=== PATIENT | male | born 1980 | race African-American/Black ===

== ENCOUNTER 2017-07-30 10:35 | Observation (INO) | payer SELFPAY ==
[2017-07-30] VITALS (8 sets, daily range): BP systolic 137–173; BP diastolic 77–100; PULSE 97–118; RESP 16–20; TEMP 97.7–98.7; O2SAT 97–98
[~2017-07-30] VITALS: Ht 190.5 cm; Wt 150.0 kg
[~2017-07-30 10:35] MED LIST: BACT800T5 PO; CLON0.2T PO; METHO500 PO; PERC10TA27 PO; ROBA500T PO
[2017-07-30] MEDS ORDERED: NITROGLYCERIN 0.4 MG SL 25 TABS/BTL SL ONE (11:00)
[2017-07-30] MEDS: SODIUM CHLORIDE 0.9% FLUSH 10 ML FLUSH IVF PRN ×2 (11:02→13:08)
[2017-07-30 11:18] LABS: AUTOMATED NEUTROPHIL # 10.3 TH/MM3 (1.8-7.7); BASOPHIL # 0.1 TH/MM3 (0-0.2); BASOPHIL % 0.8 % (0.0-2.0); EOSINOPHIL # 0.2 TH/MM3 (0-0.4); EOSINOPHIL % 1.2 % (0.0-4.0); HEMATOCRIT 44.2 % (39.0-51.0); HEMO FLAGS DIFF FINAL; LYMPH % 21.6 % (9.0-44.0); LYMPHOCYTE # 3.1 TH/MM3 (1.0-4.8); MEAN CELL VOLUME 88.1 FL (80.0-100.0); MEAN CORPUSCULAR HEMOGLOBIN 29.7 PG (27.0-34.0); MEAN CORPUSCULAR HGB CONC 33.7 % (32.0-36.0); MONO % 4.8 % (0.0-8.0); NEUT % 71.6 % (16.0-70.0); PLATELET COUNT 325 TH/MM3 (150-450); RED BLOOD COUNT 5.01 MIL/MM3 (4.50-5.90); RED CELL DISTRIBUTION WIDTH 14.5 % (11.6-17.2); WHITE BLOOD COUNT 14.4 TH/MM3 (4.0-11.0)
--- NOTE | 2017-07-30 11:22 | PD ---
HPI Chief Complaint: Chest Pain Time Seen by Provider: 10:56 Travel History International Travel<30 days: No Contact w/Intl Traveler<30days: No Traveled to known affect area: No History of Present Illness HPI So 36-year-old man who presents to the emergency department complaining of headache, chest pain, and leg swelling. He states is been going on for the past couple days. He states it happens 2-3 times a month. States been ongoing for the past several months. States been told he had high blood pressure before but doesn't take any medicine. Does not have a primary care physician. Has not followed up with patient assistance or other resources. Also states he gets blisters on his feet periodically. No other complaints. Patient endorses tobacco use but denies cocaine use. History Past Medical History Narrative Medical Hypertension Chest pain Tobacco use Tetanus Vaccination: > 5 Years Influenza Vaccination: Yes Social History Alcohol Use: No (PT DENIES ) Tobacco Use: Yes (few cig/day) Allergies-Medications (Allergen,Severity, Reaction): Coded Allergies: penicillin G (Verified Allergy, Severe, HIVES, 07/30/17) egg (Verified Allergy, Intermediate, HIVES, 07/30/17) morphine (Verified Allergy, Intermediate, ITCHING, 07/30/17) ITCHING Reported Meds & Prescriptions Reported Meds & Active Scripts Active Bactrim DS (Sulfamethoxazole-Trimethoprim) 800-160 Mg Tab 1 Tab PO BID Robaxin 500 M500 Mg 500 Mg Tab 500 Mg PO TID Reported Robaxin (Methocarbamol) 500 Mg Tab 500 Mg PO TID Clonidine (Clonidine HCl) 0.2 Mg Tab 0.2 Mg PO BID Robaxin (Methocarbamol) 500 Mg Tab 500 Mg PO TID Percocet (Oxycodone-Acetaminophen) 10-325 mg Tab 1 Tab PO Q6H PRN Review of Systems Except as stated in HPI: all other systems reviewed are Neg Physical Exam Narrative GENERAL: Heavyset 36-year-old man, no acute distress. SKIN: Focused skin assessment warm/dry. HEAD: Atraumatic. Normocephalic. CARDIOVASCULAR: Regular rate and rhythm. No murmur appreciated. RESPIRATORY: No accessory muscle use. Clear to auscultation. Breath sounds equal bilaterally. GASTROINTESTINAL: Abdomen soft, non-tender, nondistended. Hepatic and splenic margins not palpable. MUSCULOSKELETAL: No obvious deformities. No clubbing. No cyanosis. No edema. NEUROLOGICAL: Awake and alert. No obvious cranial nerve deficits. Motor grossly within normal limits. Normal speech. PSYCHIATRIC: Slightly evasive and agitated. Sometimes will not answer direct questions. Data Data Last Documented VS Vital Signs Date Time Temp Pulse Resp B/P (MAP) Pulse Ox O2 Delivery O2 Flow Rate FiO2 07/30/17 11:23 97.8 102 18 137/77 (97) 98 Room Air Orders Orders Electrocardiogram (07/30/17 ) Electrocardiogram (07/30/17 10:56) B-Type Natriuretic Peptide (07/30/17 10:56) Complete Blood Count With Diff (07/30/17 10:56) Comprehensive Metabolic Panel (07/30/17 10:56) Magnesium (Mg) (07/30/17 10:56) Prothrombin Time / Inr (Pt) (07/30/17 10:56) Act Partial Throm Time (Ptt) (07/30/17 10:56) Troponin I (07/30/17 10:56) Chest, Single Ap (07/30/17 10:56) Ecg Monitoring (07/30/17 10:56) Iv Access Insert/Monitor (07/30/17 10:56) Oximetry (07/30/17 10:56) Oxygen Administration (07/30/17 10:56) Sodium Chloride 0.9% Flush (Ns Flush) (07/30/17 11:00) Nitroglycerin Sl (Nitrostat Sl) (07/30/17 11:00) Admit Order (Ed Use Only) (07/30/17 ) Labs Laboratory Tests Test 07/30/17 11:00 White Blood Count 14.4 TH/MM3 Red Blood Count 5.01 MIL/MM3 Hemoglobin 14.9 GM/DL Hematocrit 44.2 % Mean Corpuscular Volume 88.1 FL Mean Corpuscular Hemoglobin 29.7 PG Mean Corpuscular Hemoglobin Concent 33.7 % Red Cell Distribution Width 14.5 % Platelet Count 325 TH/MM3 Mean Platelet Volume 8.6 FL Neutrophils (%) (Auto) 71.6 % Lymphocytes (%) (Auto) 21.6 % Monocytes (%) (Auto) 4.8 % Eosinophils (%) (Auto) 1.2 % Basophils (%) (Auto) 0.8 % Neutrophils # (Auto) 10.3 TH/MM3 Lymphocytes # (Auto) 3.1 TH/MM3 Monocytes # (Auto) 0.7 TH/MM3 Eosinophils # (Auto) 0.2 TH/MM3 Basophils # (Auto) 0.1 TH/MM3 CBC Comment DIFF FINAL Differential Comment Prothrombin Time 11.5 SEC Prothromb Time International Ratio 1.0 RATIO Activated Partial Thromboplast Time 28.3 SEC Blood Urea Nitrogen 11 MG/DL Creatinine 1.11 MG/DL Random Glucose 182 MG/DL Total Protein 8.0 GM/DL Albumin 3.1 GM/DL Calcium Level 8.6 MG/DL Magnesium Level 1.7 MG/DL Alkaline Phosphatase 92 U/L Aspartate Amino Transf (AST/SGOT) 17 U/L Alanine Aminotransferase (ALT/SGPT) 24 U/L Total Bilirubin 0.4 MG/DL Sodium Level 142 MEQ/L Potassium Level 3.8 MEQ/L Chloride Level 105 MEQ/L Carbon Dioxide Level 28.9 MEQ/L Anion Gap 8 MEQ/L Estimat Glomerular Filtration Rate 90 ML/MIN Troponin I LESS THAN 0.02 NG/ML B-Type Natriuretic Peptide 2 PG/ML [facility] Medical Decision Making Medical Screen Exam Complete: Yes Emergency Medical Condition: Yes Interpretation(s) My review of EKG: Sinus tachycardia rate of 111, short FL interval at 113, widespread inferior lateral T wave inversions, with new lateral T wave inversions. LABS: CBC remarkable for mild leukocytosis. CMP is unremarkable. Troponins negative. BNP Coags unremarkable. Chest x-ray: Small left basilar opacity with features consistent with a pleural effusion. Differential Diagnosis Heart failure, ACS, cardiomyopathy, adverse effect of illicit drugs, muscle skeletal chest pain, other Narrative Course Medical decision making INITIAL: This 36-year-old man who is a history of high blood pressure, suspected sleep apnea in the past, previous cardiac workups, presents with chest pain and headache leg and foot swelling and an abnormal EKG. He's had inferior T-wave inversions in the past his knee lateral T wave inversions. We' ll check labs, chest x-ray, reassess. FINAL: Initial workups unremarkable. EKG is new changes. We'll recommend chest pain Center for serial cardiac enzymes, consider provocative testing. Diagnosis Primary Impression: Chest pain Admitting Information Admitting Physician Requests: Romero Mao MD Jul 30, 2017 11:22
--- NOTE | 2017-07-30 11:23 | RADRPT ---
EXAM DATE/TIME: 07/30/2017 11:00 [facility] COMPARISON: CHEST SINGLE AP, February 16, 2016, 13:26. INDICATIONS : Chest Pain MEDICAL HISTORY : Asthma SURGICAL HISTORY : None. ENCOUNTER: Initial ACUITY: 1 day PAIN SCORE: 6/10 LOCATION: Bilateral chest FINDINGS: Portable AP view of the chest demonstrates a normal-sized cardiac silhouette. There is a small left b asilar pleural-parenchymal opacity. No pneumothorax is visualized. There is mild atelectasis at the r ight lung base. Bones and soft tissues demonstrate no acute finding. CONCLUSION: Small left basilar opacity with features characteristic of pleural effusion with associated volume lo ss and/or airspace consolidation. Tato Conner MD on July 30, 2017 at 11:19 Board Certified Radiologist. This report was verified electronically.
[2017-07-30 11:26] LABS: PROTHROMBIN TIME - PATIENT 11.5 SEC (9.8-11.6)
[2017-07-30 11:27] LABS: APTT (PATIENT) 28.3 SEC (24.3-30.1)
[2017-07-30 11:38] LABS: ALKALINE PHOSPHATASE 92 U/L (45-117); TOTAL BILIRUBIN ADULT 0.4 MG/DL (0.2-1.0)
[2017-07-30 11:51] LABS: ALT (GPT) 24 U/L (12-78); ANION GAP 8 MEQ/L (5-15); AST (GOT) 17 U/L (15-37); BICARBONATE 28.9 MEQ/L (21.0-32.0); BLOOD UREA NITROGEN 11 MG/DL (7-18); CHLORIDE 105 MEQ/L (98-107); GLOMERULAR FILTRATION RATE 90 ML/MIN (>89); MAGNESIUM 1.7 MG/DL (1.5-2.5); POTASSIUM 3.8 MEQ/L (3.5-5.1); SODIUM (NA) 142 MEQ/L (136-145)
[2017-07-30] MEDS ORDERED: KETOROLAC TROMETHAMINE 30 MG/ML (IVP) VIAL IVP ONE (13:00)
[2017-07-30] MEDS ORDERED: SODIUM CHLORIDE 0.9% FLUSH 5 ML FLUSH IVF PRN (13:00)
[2017-07-30] MEDS ORDERED: ACETAMINOPHEN 500 MG CPLT PO PRN (13:00)
[2017-07-30] MEDS ORDERED: amLODIPine BESYLATE 5 MG TAB PO SCH (13:00)
[2017-07-30] MEDS ORDERED: ONDANSETRON HCL 4 MG/2 ML VIAL IV PRN (13:00)
--- NOTE | 2017-07-30 13:07 | HHI.HP ---
HPI Primary Care Physician No Primary Care Physician Chief Complaint Chest pain History of Present Illness This is a 36-year-old male that presents to ED with a complaint of 6 months of intermittent chest discomfort. Usually occurs 2-3 times a month. It is not exertionally related. He states her last 2 days it really has not changed, he decided to have it checked out. States has history of hypertension but has not had medicines for years. States he does not a primary care physician. States he only has a paint pourer that he follows for his chronic back pain. Denies shortness red nausea or diaphoresis with the symptoms. Denies recent travel. Denies recent illnesses. He has not been coughing. Patient had nonischemic Lexiscan January 2015. EF was 70%. Review of Systems General: Patient denies fevers, chills recent, and recent travel HEENT: Patient denies headache, sore throat, difficulty swallowing. Cardiovascular: Has the chest discomfort as mentioned above. Denies sensation of heart beating rapidly or irregularly. No syncope. Denies diaphoresis. Respiratory: Denies shortness of breath or inspirational chest discomfort. Denies coughing wheezing or hemoptysis. GI: Patient denies nausea, vomiting, diarrhea, abdominal pain, bloody stools. Musculoskeletal: Complains of chronic low back pain. Patient denies joint pain or edema. Denies calf pain or edema. Neurovascular: Patient denies numbness, tingling, weakness in extremities. Denies headache. Endocrine: Denies polyuria and polydipsia. Hematologic: Denies easy bruising. Skin: Denies rash or itching. Past Family Social History Allergies: Coded Allergies: penicillin G (Verified Allergy, Severe, HIVES, 07/30/17) egg (Verified Allergy, Intermediate, HIVES, 07/30/17) morphine (Verified Allergy, Intermediate, ITCHING, 07/30/17) ITCHING Past Medical History Hypertension however no medications for years. Chronic back pain. Denies hyperlipidemia diabetes and known CAD. Past Surgical History Noncontributory. Reported Medications Reported Meds & Active Scripts Active Bactrim DS (Sulfamethoxazole-Trimethoprim) 800-160 Mg Tab 1 Tab PO BID Robaxin 500 M500 Mg 500 Mg Tab 500 Mg PO TID Reported Robaxin (Methocarbamol) 500 Mg Tab 500 Mg PO TID Clonidine (Clonidine HCl) 0.2 Mg Tab 0.2 Mg PO BID Robaxin (Methocarbamol) 500 Mg Tab 500 Mg PO TID Percocet (Oxycodone-Acetaminophen) 10-325 mg Tab 1 Tab PO Q6H PRN Active Ordered Medications Current Medications Medications (Trade) Dose Ordered Sig/Joey Route Start Time Stop Time Status Last Admin (NS Flush) 2 ml UNSCH PRN IVF 07/30/17 11:00 07/30/17 11:02 (NS Flush) 2 ml UNSCH PRN IVF 07/30/17 13:00 (NS Flush) 2 ml BID IVF 07/30/17 21:00 UNV (Tylenol) 500 mg Q4H PRN PO 07/30/17 13:00 UNV (Zofran Inj) 4 mg Q6H PRN IV 07/30/17 13:00 UNV (Toradol Inj) 30 mg ONCE ONCE IVP 07/30/17 13:00 07/30/17 13:01 UNV (Norvasc) 5 mg DAILY PO 07/30/17 13:00 Family History Denies family history of CAD. Social History Patient has been smoking about 7 cigarettes a day for the past year but prior that he smoked about 1 pack of cigarettes daily for 15 years. Denies alcohol or illicit drugs. Physical Exam Vital Signs Vital Signs Date Time Temp Pulse Resp B/P (MAP) Pulse Ox O2 Delivery O2 Flow Rate FiO2 07/30/17 11:23 97.8 102 18 137/77 (97) 98 Room Air 07/30/17 11:22 18 07/30/17 10:58 97.8 108 18 154/81 (105) 97 Room Air 07/30/17 10:57 18 97 Room Air 07/30/17 10:57 97 Room Air 07/30/17 10:52 108 18 173/100 (124) 98 Room Air 07/30/17 10:49 110 17 98 Room Air 07/30/17 10:42 98.7 118 20 163/95 (117) 98 Room Air Physical Exam GENERAL: This is a well-nourished, well-developed patient, in no apparent distress. Patient speaks in clear complete sentences. Patient is pleasant. Patient is obese at 150 kg. HEENT: Head is atraumatic and normocephalic. Neck is supple without lymphadenopathy and trachea is midline. No JVD or carotid bruits. CARDIOVASCULAR: Regular rate and rhythm without murmurs, gallops, or rubs. RESPIRATORY: Clear to auscultation. Breath sounds equal bilaterally. No wheezes , rales, or rhonchi. Chest wall is tender when palpating over the sternum which he states is the discomfort he has been having. No use of accessory muscles. GASTROINTESTINAL: Abdomen is nontender, nondistended. Abdomen soft. No obvious pulsatile mass or bruit. No CVA tenderness. Strong femoral pulses bilaterally. Normal bowel sounds in all quadrants. MUSCULOSKELETAL: Patient is moving upper and lower extremities freely. No calf tenderness or edema, no Homans sign. Strong pulses in upper and lower extremities. NEUROLOGICAL: Patient is alert and oriented. Cranial nerves 2-12 are grossly intact. No focal deficits and speech is clear. SKIN: No rash and turgor is normal. Laboratory Laboratory Tests Test 07/30/17 11:00 White Blood Count 14.4 Red Blood Count 5.01 Hemoglobin 14.9 Hematocrit 44.2 Mean Corpuscular Volume 88.1 Mean Corpuscular Hemoglobin 29.7 Mean Corpuscular Hemoglobin Concent 33.7 Red Cell Distribution Width 14.5 Platelet Count 325 Mean Platelet Volume 8.6 Neutrophils (%) (Auto) 71.6 Lymphocytes (%) (Auto) 21.6 Monocytes (%) (Auto) 4.8 Eosinophils (%) (Auto) 1.2 Basophils (%) (Auto) 0.8 Neutrophils # (Auto) 10.3 Lymphocytes # (Auto) 3.1 Monocytes # (Auto) 0.7 Eosinophils # (Auto) 0.2 Basophils # (Auto) 0.1 CBC Comment DIFF FINAL Differential Comment Prothrombin Time 11.5 Prothromb Time International Ratio 1.0 Activated Partial Thromboplast Time 28.3 Blood Urea Nitrogen 11 Creatinine 1.11 Random Glucose 182 Total Protein 8.0 Albumin 3.1 Calcium Level 8.6 Magnesium Level 1.7 Alkaline Phosphatase 92 Aspartate Amino Transf (AST/SGOT) 17 Alanine Aminotransferase (ALT/SGPT) 24 Total Bilirubin 0.4 Sodium Level 142 Potassium Level 3.8 Chloride Level 105 Carbon Dioxide Level 28.9 Anion Gap 8 Estimat Glomerular Filtration Rate 90 Troponin I LESS THAN 0.02 B-Type Natriuretic Peptide 2 Result Diagram: 07/30/17 1100 07/30/17 1100 Imaging Last 48 hours Impressions Chest X-Ray 07/30/17 1056 Signed Impressions: Service Date/Time: Sunday, July 30, 2017 11:00 - CONCLUSION: Small left basilar opacity with features characteristic of pleural effusion with associated volume loss and/or airspace consolidation. Tato Conner MD Course EKGs: Initial EKG has sinus rhythm with incomplete right bundle branch block with inferolateral ST-T changes that are nonspecific. Upon reviewing records she had EKG similar January 2015. Caprini VTE Risk Assessment Caprini VTE Risk Assessment: No/Low Risk (score <= 1) Caprini Risk Assessment Model Point Value = 1 Point Value = 2 Point Value = 3 Point Value = 5 Age 41-60 Minor surgery BMI > 25 kg/m2 Swollen legs Varicose veins or History of unexplained or recurrent spontaneous Oral contraceptives or hormone replacement Sepsis (< 1 month) Serious lung disease, including pneumonia (< 1 month) Abnormal pulmonary function Acute myocardial infarction Congestive heart failure (< 1 month) History of inflammatory bowel disease Medical patient at bed rest Age 61-74 Arthroscopic surgery Major open surgery (> 45 min) Laparoscopic surgery (> 45 min) Malignancy Confined to bed (> 72 hours) Immobilizing plaster cast Central venous access Age >= 75 History of VTE Family history of VTE Factor V Leiden Prothrombin [id number] Lupus anticoagulant Anticardiolipin antibodies Elevated serum homocysteine Heparin-induced thrombocytopenia Other congenital or acquired thrombophilia Stroke (< 1 month) Elective arthroplasty Hip, pelvis, or leg fracture Acute spinal cord injury (< 1 month) Prophylaxis Regimen Total Risk Factor Score Risk Level Prophylaxis Regimen 0-1 Low Early ambulation 2 Moderate Order ONE of the following: *Sequential Compression Device (SCD) *Heparin 5000 units SQ BID 3-4 Higher Order ONE of the following medications: *Heparin 5000 units SQ TID *Enoxaparin/Lovenox 40 mg SQ daily (WT < 150 kg, CrCl > 30 mL/min) *Enoxaparin/Lovenox 30 mg SQ daily (WT < 150 kg, CrCl > 10-29 mL/min) *Enoxaparin/Lovenox 30 mg SQ BID (WT < 150 kg, CrCl > 30 mL/min) AND/OR *Sequential Compression Device (SCD) 5 or more Highest Order ONE of the following medications: *Heparin 5000 units SQ TID (Preferred with Epidurals) *Enoxaparin/Lovenox 40 mg SQ daily (WT < 150 kg, CrCl > 30 mL/min) *Enoxaparin/Lovenox 30 mg SQ daily (WT < 150 kg, CrCl > 10-29 mL/min) *Enoxaparin/Lovenox 30 mg SQ BID (WT < 150 kg, CrCl > 30 mL/min) AND *Sequential Compression Device (SCD) Assessment and Plan Assessment and Plan * Chest pain: Patient's symptoms appear to be atypical and possibly musculoskeletal in nature. Patient will be seen by Dr. Cruz of cardiology in the chest pain center. Patient was given Toradol for this discomfort. Chest x- ray read by radiologist as pleural effusion and/or consolidation. Upon reviewing records she had a similar appearing chest x-ray January 2016 that was read by the radiologist as hazy opacity in lungs with differential diagnosis including and atelectasis and overlying soft tissue. Small left effusion. No pneumothorax. Patient will need to follow-up with PCP. He should check and the patient assistance. * Hypertension: We'll start amlodipine. * Hyperglycemia: Patient should have this followed up with PCP. * Tobacco abuse: Patient has been counseled on the importance of smoking cessation. * Obesity: Patient has been counseled on importance of diet, exercise, and weight loss. Patient is stable at this time. He is agreeable to this plan. Esau Barclay Jul 30, 2017 13:07
[2017-07-30] MEDS ORDERED: METHOCARBAMOL 500 MG TAB PO PRN (14:45)
[2017-07-30] MEDS ORDERED: oxyCODONE/ACETAMINOPHEN 10 MG/325 MG TAB PO PRN (14:45)
[2017-07-30] MEDS ORDERED: AMLO5 PO (16:50)
--- NOTE | 2017-07-30 16:51 | HHI.DCPOC ---
Discharge Care Plan Diagnosis: (1) Hyperglycemia (2) Chest pain (3) HTN (hypertension) (4) Tobacco abuse (5) Obesity Goals to Promote Your Health * To prevent worsening of your condition and complications * To maintain your health at the optimal level Directions to Meet Your Goals Take your medications as prescribed Follow your dietary instruction Follow activity as directed Keep your appointments as scheduled Take your immunizations and boosters as scheduled If your symptoms worsen call your PCP, if no PCP go to Urgent Care Center or Emergency Room Smoking is Dangerous to Your Health. Avoid second hand smoke Call the 24-hour hour crisis hotline for domestic abuse at Esau Barclay Jul 30, 2017 16:51
[2017-07-30] MEDS ORDERED: SODIUM CHLORIDE 0.9% FLUSH 5 ML FLUSH IVF SCH (21:00)
--- NOTE | 2017-07-31 14:17 | EKG ---
Date Performed: 07/30/2017 Time Performed: 10:48:32 PTAGE: 36 years EKG: SINUS TACHYCARDIA WITH SHORT AK INTERVAL POSSIBLE LEFT ATRIAL ENLARGEMENT POSSIBLE RIGHT VE NTRICULAR CONDUCTION DELAY ST DEVIATION AND MODERATE T-WAVE ABNORMALITY, CONSIDER LATERAL ISCHEMIA ST DEVIATION AND MODERATE T-WAVE ABNORMALITY, CONSIDER INFERIOR ISCHEMIA No significant change except f or slight increase in heart rate ABNORMAL ECG PREVIOUS TRACING : 02/01/2015 11.38 DOCTOR: Jose Barfield Interpretating Date/Time 07/31/2017 14:16:48
--- NOTE | 2017-07-31 14:20 | EKG ---
Date Performed: 07/30/2017 Time Performed: 14:50:29 PTAGE: 36 years EKG: Sinus rhythm POSSIBLE RIGHT VENTRICULAR CONDUCTION DELAY ST DEVIATION AND MODERATE T-WAVE ABNORMALITY, CONSIDER L ATERAL ISCHEMIA ST DEVIATION AND MODERATE T-WAVE ABNORMALITY, CONSIDER INFERIOR ISCHEMIA Compared to previous tracing sinus tachycardia is no longer present, right bundle branch block continues, inferio r and anterolateral nonspecific ST T wave changes continue ABNORMAL ECG PREVIOUS TRACING : 07/30/2017 10.48 DOCTOR: Jose Barfield Interpretating Date/Time 07/31/2017 14:18:47
== END 2017-07-30 17:39 | disposition home or self-care (01) ==
LOC: NEPC 10:35 → NEDA 12:13 → NEPFCDU 14:25
PROVIDERS: ADMIT Internal Medicine Interventional Cardiology; ATTEND Internal Medicine Interventional Cardiology
DX: R07.89 Other chest pain (principal); I10 Essential (primary) hypertension; R73.9 Hyperglycemia, unspecified; G89.29 Other chronic pain; M54.9 Dorsalgia, unspecified; R94.31 Abnormal electrocardiogram [ECG] [EKG]; F17.200 Nicotine dependence, unspecified, uncomplicated; E66.9 Obesity, unspecified; Z68.41 Body mass index [BMI] 40.0-44.9, adult
CPT/HCPCS: 71010; 80053; 83735; 83880; 84484; 85025; 85610; 85730; 93005; 96374; 96376; 99285; G0378; J1885

== ENCOUNTER 2017-12-26 21:56 | Emergency (ER) | payer OTHER ==
[~2017-12-26] VITALS: Ht 191.8 cm; Wt 160.0 kg
[~2017-12-26 21:56] MED LIST changes: +AMLO5 PO; -BACT800T5 PO; -CLON0.2T PO; -METHO500 PO
[2017-12-26 21:59] VITALS: BP 171/100; PULSE 106; RESP 18; TEMP 98.5; O2SAT 96
[2017-12-27] MEDS ORDERED: ACETAMINOPHEN 325 MG TAB PO ONE (00:15)
[2017-12-27] MEDS ORDERED: TETANUS/DIPHTHERIA TOXOID ADULT 0.5 ML VIAL IM ONE (00:15)
--- NOTE | 2017-12-27 00:35 | PD ---
HPI Chief Complaint: blisters Time Seen by Provider: 23:39 Travel History International Travel<30 days: No Contact w/Intl Traveler<30days: No Traveled to known affect area: No History of Present Illness HPI 37yo M with PMH of chronic back pain here with c/o blisters on bottom of left foot since yesterday. Said it feel burning and is painful. Denies any itching. Said he put his left foot in Ronnie foot soap to get rid of skin 2 days ago. Denies any fever, chest pain, sob, n/v, abdominal pain, focal weakness or numbness or trauma. PFSH Past Medical History Asthma: Yes Blood Disorders: No Heart Rhythm Problems: No Cardiac Catheterization: No Cardiovascular Problems: Yes High Cholesterol: No Chest Pain: Yes Congestive Heart Failure: No Diabetes: No Diminished Hearing: No Gastrointestinal Disorders: Yes GERD: Yes Genitourinary: Yes Hypertension: Yes Immune Disorder: No Kidney Stones: Yes Musculoskeletal: No Neurologic: Yes Psychiatric: No Reproductive: No Respiratory: Yes Immunizations Current: Yes Seizures: Yes Sleep Apnea: Yes Ulcer: Yes Past Surgical History Abdominal Surgery: No Cardiac Surgery: No Coronary Artery Bypass Graft: No Ear Surgery: No Endocrine Surgery: No Eye Surgery: No Genitourinary Surgery: No Gynecologic Surgery: No Joint Replacement: Yes (RT ELBOW SX) Neurologic Surgery: No Oral Surgery: No Pacemaker: No Thoracic Surgery: No Social History Alcohol Use: No (PT DENIES ) Tobacco Use: Yes (few cig/day) Substance Use: No (PT DENIES ) Allergies-Medications (Allergen,Severity, Reaction): Coded Allergies: penicillin G (Verified Allergy, Severe, HIVES, 07/30/17) egg (Verified Allergy, Intermediate, HIVES, 07/30/17) morphine (Verified Allergy, Intermediate, ITCHING, 07/30/17) ITCHING Reported Meds & Prescriptions Reported Meds & Active Scripts Active Tylenol (Acetaminophen) 325 Mg Tab 650 Mg PO Q6H PRN Bactrim DS (Sulfamethoxazole-Trimethoprim) 800-160 Mg Tab 1 Tab PO BID Norvasc (Amlodipine Besylate) 5 Mg Tab 5 Mg PO DAILY Reported Robaxin (Methocarbamol) 500 Mg Tab 500 Mg PO TID Percocet (Oxycodone-Acetaminophen) 10-325 mg Tab 1 Tab PO Q6H PRN Review of Systems Except as stated in HPI: all other systems reviewed are Neg Physical Exam Narrative GENERAL: 37yo M not in distress. SKIN: Multiple skin color blisters on plantar surface of left foot. HEAD: Atraumatic. Normocephalic. EYES: Pupils equal and round. No scleral icterus. No injection or drainage. ENT: No nasal bleeding or discharge. Mucous membranes pink and moist. NECK: Trachea midline. No JVD. CARDIOVASCULAR: Regular rate and rhythm. No murmur appreciated. RESPIRATORY: No accessory muscle use. Clear to auscultation. Breath sounds equal bilaterally. GASTROINTESTINAL: Abdomen soft, non-tender, nondistended. MUSCULOSKELETAL: Left foot: DP 2+. Sensation intact. +Painful blister plantar surface. NEUROLOGICAL: Awake and alert. No obvious cranial nerve deficits. Motor grossly within normal limits. Normal speech. PSYCHIATRIC: Appropriate mood and affect; insight and judgment normal. Data Data Last Documented VS Vital Signs Date Time Temp Pulse Resp B/P (MAP) Pulse Ox O2 Delivery O2 Flow Rate FiO2 12/26/17 21:59 98.5 106 18 171/100 (123) 96 Orders Orders Acetaminophen (Tylenol) (12/27/17 00:15) Tetanus/Diphtheria Tox Adult (Tetanus/Di (12/27/17 00:15) Ed Discharge Order (12/27/17 00:42) MDM Medical Decision Making Medical Screen Exam Complete: Yes Emergency Medical Condition: Yes Differential Diagnosis 2nd degree burn vs. chemical reaction Narrative Course 37yo M here with c/o blisters on bottom of left foot since yesterday. Denies any fever, mucosal involvement or itching. Pt said he soaked his left foot in Ronnie foot soap 2 days ago. It looks like a burn to me so I ordered acetaminophen and tetanus. I was informed by my nurse that when she went to give him the medication, he became very upset. I went in to talk to him but he just said I dont want to talk, just give me the discharge papers. Unsure what exactly happened. Pt is nontoxic appearing. Will cover with bactrim for possible burn. Return precautions given. Pt left the ED without any paper work or prescription. He would not talk to me. Diagnosis Primary Impression: Blister Patient Instructions: General Instructions Departure Forms: Tests/Procedures Additional Instructions: Please follow up with your primary care physician. Return to the ED if symptoms worsen. Med/Other Pt SpecificInfo: Prescription(s) given Scripts Acetaminophen (Tylenol) 325 Mg Tab 650 MG PO Q6H Y for PAIN SCALE 1 TO 4, #20 TAB 0 Refills Prov: Eladia Tello DO 12/27/17 Sulfamethoxazole-Trimethoprim (Bactrim DS) 800-160 Mg Tab 1 TAB PO BID for Infection, #14 TAB 0 Refills Prov: Eladia Tello DO 12/27/17 Disposition: 01 DISCHARGE HOME Condition: Stable Eladia Tello DO Dec 27, 2017 00:35
[2017-12-27] MEDS ORDERED: TYLE325T PO (00:41)
[2017-12-27] MEDS ORDERED: BACT800T5 PO (00:41)
== END 2017-12-27 00:45 | disposition left against medical advice (07) ==
LOC: NEPD 21:56
DX: S90.822A Blister (nonthermal), left foot, initial encounter (principal); I10 Essential (primary) hypertension; F17.210 Nicotine dependence, cigarettes, uncomplicated; X58.XXXA Exposure to other specified factors, initial encounter
CPT/HCPCS: 99283